=== PATIENT | male | born 1970 | race Caucasian/White ===

== ENCOUNTER 2018-03-06 18:39 | Emergency (ER) | payer OTHER ==
[~2018-03-06] VITALS: Ht 172.7 cm; Wt 86.7 kg
[2018-03-06 18:46] VITALS: BP 124/63
[2018-03-06] MEDS ORDERED: CIPRO500 MG PO (18:51)
[2018-03-06] MEDS ORDERED: NORCO 5-325 TA1 EACH PO (18:51)
[2018-03-06] MEDS ORDERED: FLAGYL500 MG PO (18:51)
[2018-03-06 19:47] LABS: ABSOLUTE BASOPHILS 0.1 thou/uL (0.0-0.2); ABSOLUTE EOSINOPHILS 0.2 thou/uL (0.0-0.7); ABSOLUTE LYMPHOCYTES 1.9 thou/uL (0.8-5.3); ABSOLUTE MONOCYTES 0.7 thou/uL (0.0-1.2); ABSOLUTE NEUTROPHILS 6.7 thou/uL (1.6-8.1); BASOPHILS 0.7 %; EOSINOPHILS 1.7 %; HEMATOCRIT 43.8 % (42.0-52.0); HEMOGLOBIN 14.4 gm/dL (14.0-18.0); LYMPHOCYTES 20.4 %; MCH 28.7 pg (26.0-34.0); MCV 86.9 fL (80.0-100.0); MONOCYTES 7.3 %; MPV 7.9 fl. (7.2-11.1); NUCLEATED RBCS 0 /100WBC; PLATELET COUNT* 243 thou/uL (150-400); POLYS 69.9 %; RBC 5.03 mil/uL (4.50-6.00); RDW-CV 13.8 % (10.5-14.5); WBC 9.5 thou/uL (4.0-11.0)
[2018-03-06 19:57] LABS: ANION GAP 7 mmol/L (7-16); BUN 12 mg/dL (7-18); CALCIUM 8.8 mg/dL (8.5-10.1); CHLORIDE 102 mmol/L (98-107); CO2 30 mmol/L (21-32); CREATININE 1.1 mg/dL (0.6-1.3); GLUCOSE 131 mg/dL (70-99); SODIUM 139 mmol/L (136-145)
[2018-03-06 20:02] LABS: APTT 26.5 Seconds (25.0-31.3); INR 1.1; PROTIME 10.9 Seconds (9.20-11.50)
[2018-03-06 20:04] LABS: ALBUMIN 3.7 g/dL (3.4-5.0); ALKALINE PHOSPHATASE 81 U/L (46-116); LIPASE 128 U/L (73-393); SGOT 14 U/L (15-37); SGPT 25 U/L (30-65); TOTAL BILIRUBIN 0.7 mg/dL (<0.1-1.0); TOTAL PROTEIN 7.2 g/dL (6.4-8.2); TROPONIN-I LEVEL <0.06 ng/mL (<0.06)
[2018-03-06 22:22] VITALS: BP 109/77
[2018-03-07 00:58] VITALS: BP 125/71
--- NOTE | 2018-03-07 12:07 | EKG ---
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
--- NOTE | 2018-03-07 12:07 | EKG ---
[place] [address] ELECTROCARDIOGRAM REPORT Name: JONASMARIO Eduardo Room: [facility]#: [id number] Admission: 03/06/18 Attend Phys: Discharge: 03/06/18 Date of : 74 Report #: [id number] THIS REPORT FOR: //name// [facility] ED Test Date: 2018-03-06 Test Time: 23:35:26 Pat Name: MARIO JONAS Department: Room: 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: CAL : 1970 Requested By: Mary Mary Order Number: [id number] MD: Humberto Matson Measurements Intervals [place] Rate: 56 P: 35 [place]: 236 QRS: -26 QRSD: 103 T: 32 QT: 427 QTc: 413 Interpretive Statements Sinus rhythm Prolonged [place] interval Borderline left axis deviation No previous ECG available for comparison Electronically Signed On 03-07-2018 12:07:04 CDT by Humberto Matson [email or web address] <ELECTRONICALLY SIGNED> By: Humberto Matson MD, [facility] 03/07/18 1207 34 Humberto Matson MD, [facility] /EPI
== END 2018-03-06 22:22 | disposition still patient (30) ==
LOC: M.ERS 18:39 → M.TBA-ER 21:37
PROVIDERS: Personal Emergency Response Attendant
DX: I48.91 Unspecified atrial fibrillation (principal); R55 Syncope and collapse